=== PATIENT | female | born 1975 | race Two or more races ===

== ENCOUNTER 2018-06-14 20:34 | Emergency (ER) | payer MEDICAID ==
[~2018-06-14] VITALS: Ht 157.5 cm; Wt 54.4 kg
[2018-06-14 22:13] VITALS: BP 161/86
== END 2018-06-14 23:27 | disposition home or self-care (01) ==
LOC: EDBD 20:34 → ER 20:41
DX: O9A.211 Injury, poisoning and certain other consequences of external causes complicating pregnancy, first trimester (principal); O09.521 Supervision of elderly multigravida, first trimester; M54.2 Cervicalgia; M54.5 Low back pain; Z3A.01 Less than 8 weeks gestation of pregnancy; V49.69XA Unspecified car occupant injured in collision with other motor vehicles in traffic accident, initial encounter; Y93.89 Activity, other specified; Y99.8 Other external cause status; Y92.89 Other specified places as the place of occurrence of the external cause
CPT/HCPCS: 81025